=== PATIENT | female | born 1995 | race Caucasian/White ===

== ENCOUNTER 2018-05-25 18:01 | Inpatient (IN) ==
[2018-05-25] MEDS ORDERED: BUTORPHANOL TARTRATE 2 MG/1 ML VIAL IVP PRN (19:02)
[2018-05-25] MEDS ORDERED: Metoclopramide Inj 10 MG/2 ML VIAL IV PRN (19:02)
[2018-05-25] MEDS ORDERED: Phenylephrine Inj 50 MCG in Sodium Chloride 0.9% vial 0.5 ML IVP PRN (19:02)
[2018-05-25] MEDS ORDERED: LIDOCAINE HCL 2 % 10 ML JELLY URO-JECT TOPICAL PRN (19:02)
[2018-05-25] MEDS ORDERED: MISOPROSTOL 200 MCG TABLET RECTAL PRN (19:02)
[2018-05-25] MEDS ORDERED: LIDOCAINE W/ SODIUM BICARB 0.5 ML SYR SUBD PRN (19:02)
[2018-05-25] MEDS ORDERED: diphenhydrAMINE 50 MG/1 ML VIAL IVP PRN (19:02)
[2018-05-25] MEDS ORDERED: ONDANSETRON 4 MG/2 ML VIAL IVP PRN (19:02)
[2018-05-25] MEDS ORDERED: Carboprost Inj 250 MCG/ML AMP IM PRN (19:02)
[2018-05-25] MEDS ORDERED: FAMOTIDINE 20 MG/2 ML VIAL IVP PRN ×2 (19:02)
[2018-05-25] MEDS ORDERED: CALCIUM CARBONATE 500 MG (TUMS) CHEWABLE TABLET PO PRN (19:02)
[2018-05-25] MEDS ORDERED: Lidocaine 1% 10 MG/ML - 20 ML VIAL SUBCUT PRN (19:02)
[2018-05-25] MEDS ORDERED: Naloxone Inj 0.01 MG in Sodium Chloride 0.9% vial 1 ML IVP PRN (19:02)
[2018-05-25] MEDS ORDERED: CITRIC ACID/SODIUM CITRATE 30 ML CUP PO PRN (19:02)
[2018-05-25] MEDS ORDERED: Misoprostol Tab 100 MCG TAB VAGINAL PRN (19:02)
[2018-05-25] MEDS ORDERED: CefOXitin Inj 2 GM in Sodium Chloride 0.9% 100 ML IV PRN (19:02)
[2018-05-25] MEDS ORDERED: TERBUTALINE SULFATE 1 MG/1 ML SDV SUBCUT PRN (19:02)
[2018-05-25] MEDS ORDERED: Nalbuphine Inj 20 MG/ML Ampule IVP PRN (19:02)
[2018-05-25] MEDS ORDERED: ePHEDrine Inj 50 MG/ML AMP IVP PRN (19:02)
[2018-05-25] MEDS ORDERED: fentaNYL Inj 100 MCG/2 ML VIAL IV PRN (19:02)
[2018-05-25] MEDS ORDERED: METHYLERGONOVINE MALEATE 0.2 MG/1 ML VIAL IM PRN (19:02)
[2018-05-25] MEDS ORDERED: Zolpidem Tab 5 MG TAB PO PRN (19:02)
[2018-05-25] MEDS ORDERED: OXYTOCIN 10 UNIT/1 ML IM PRN (19:02)
[2018-05-25] MEDS ORDERED: NALOXONE 0.4 MG/1 ML VIAL IVP PRN (19:02)
[2018-05-25] MEDS ORDERED: Oxytocin 20 Units + LR 20 UNIT/1,000 ML BAG IV SCH ×2 (19:15)
[2018-05-25] MEDS: Lactated Ringers-OB Dept 1,000 ML PRIMARY IV SCH ×2 (19:49→23:18)
[2018-05-25 20:09] LABS: Hemoglobin [HGB] 12.9 g/dL (12.0-16.0); MEAN CORPUSCULAR HEMOGLOBIN 32.7 PG (27-31); MEAN CORPUSCULAR HGB CONC 34.9 g/dL (33-37); MEAN CORPUSCULAR VOLUME 93.7 FL (81-99); MEAN PLATELET VOLUME 10.6 FL (7.4-12.2); RED BLOOD COUNT 3.95 10^6/uL (4.20-5.40)
[2018-05-25] MEDS ORDERED: fentaNYL Inj 100 MCG/2 ML VIAL ONE (23:27)
[2018-05-25] MEDS ORDERED: NALOXONE 0.4 MG/1 ML VIAL ONE (23:43)
[2018-05-25] MEDS ORDERED: Lactated Ringers 1,000 ML PRIMARY IV ONE (23:45)
[2018-05-26] MEDS ORDERED: OXYTOCIN 10 UNIT/1 ML ONE ×2 (00:03→00:26)
[2018-05-26] MEDS ORDERED: DEXTROSE 31 GM GEL BUCCAL PRN (00:09)
[2018-05-26] MEDS ORDERED: ERYTHROMYCIN BASE 1 GM EYE OINT EACH EYE ONE (00:09)
[2018-05-26] MEDS ORDERED: HEPATITIS B VIRUS VACCINE-PF 5 MCG/0.5 ML INFANT IM ONE (00:09)
[2018-05-26] MEDS ORDERED: PHYTONADIONE 1 MG/0.5 ML NEONATAL CONCENTRATION IM ONE (00:09)
[2018-05-26] MEDS ORDERED: ONDANSETRON 4 MG/2 ML VIAL ONE (00:11)
[2018-05-26] MEDS ORDERED: MIDAZOLAM 5 MG/1 ML ONE (00:14)
[2018-05-26] MEDS ORDERED: ePHEDrine Inj 50 MG/ML AMP ONE (00:24)
[2018-05-26] MEDS ORDERED: Lactated Ringers 1,000 ML PRIMARY IV ONE (00:26)
--- NOTE | 2018-05-26 00:52 | CRNA.PROGR ---
Anesthesia Recovery Phase I - Post Anesthesia Evaluation Patient's Condition on Arrival in Phase I: Stable Pain Level: 1
--- NOTE | 2018-05-26 00:52 | CRNA.PROGR ---
Anesthesia Time - Procedure/Recovery Time Start Date: 05/25/18 End Date: 05/26/18 Anesthesia : Time In: 23:49 Anesthesia : Time Out: 00:53 Anesthesia : Total Time: 64 - Total Anesthesia Time Total Anesthesia Time (minutes): 64 - Other Weight: 64.524 kg Height: 5 ft 4 in Body Mass Index (BMI): 24.4 Anesthesia Type: Spinal Block Obstetrics: C/S anesthesia only
[2018-05-26] MEDS ORDERED: Prochlorperazine Edisylate Inj 10mg/2ml vial IVP PRN (00:54)
[2018-05-26] MEDS ORDERED: KETOROLAC 15 MG/1 ML VIAL IVP PRN (00:54)
[2018-05-26] MEDS ORDERED: LIDOCAINE W/ SODIUM BICARB 0.5 ML SYR SUBD PRN (00:54)
--- NOTE | 2018-05-26 00:54 | CRNA.PROCE ---
Central Neuraxis Block Placemt - - Safety Measures: Time Out Taken - - Type of Block: Subarachnoid Reason for Block: Surgical Moniters Used During Block: EKG, SPO2, NIBP Skin Prep Used: ChloroPrep Skin Infiltration - Enter Amount Used in Comment Field: 1% Xylocaine (mL): Yes (skin wheal) Local Anesthetic - Enter Amount Used in Comment Field: 0.75 % Bupivacaine with Dextrose (ml): Yes (2ml) Additive Used - Enter Amount Used in Comment Field: Fentanyl (mcg): Yes (15mcg) Bioclusive Dressing Applied: No Anesthesia Time - Other Weight: 64.524 kg Height: 5 ft 4 in Body Mass Index (BMI): 24.4
[2018-05-26] MEDS ORDERED: Lactated Ringers 1,000 ML PRIMARY IV SCH (01:00)
[2018-05-26] MEDS ORDERED: KETOROLAC 15 MG/1 ML VIAL ONE (01:05)
--- NOTE | 2018-05-26 01:15 | OB.OP.NOTE ---
Operative Report - - Surgeon: Chang Hoyos MD Last Cleaner: Marc Garcia MD Anesthesia Type: Regional Anesthesia Provider: Rashawn Montoya CRNA Surgery Date: 05/26/18 Preoperative Diagnosis: intolerance to labor; IUGR, term gestation Postoperative Diagnosis: same, delivered Procedure: Primary section Complications: none Estimated Blood Loss (mL): 600 Urine Output (mL): 350 Fluids: 2000 cc LR; 30 mU of pitocin Indications: Pt is a 22 yo at 39 1/7 weeks by early /s who has been followed for the past few weeks for intrauterine growth restriction. Her NST have been reactive, her cord dopplers normal and her GI have been normal as well. She presented tonight for cervical ripening secondary to the IUGR. She was not capri upon admission. She received 1 dose of cytotec at approximately 2030. At approximately 2230, I was called by the nurse regarding subtle late decelerations with each contraction. Intrauterine resuscitative efforts were initiated. The decision to give terbutaline to try and stop her contractions was made. After administration of the terbutaline, the baby had a heart deceleration down to the 70s. I was called by the nursing staff at that point. The OR crew was called in. The pt was consented for a primary section for intolerance to labor. Findings: Female infant, cephalic, acynclitic OP presentation. Clear amniotic fluid. The placenta did feel fairly calcified upon removal from the uterus. Description of Procedure: The patient was taken to the operating room where spinal anesthesia was found to be adequate. She was then prepared and draped in the normal sterile fashion in the dorsal supine position with a leftward tilt. A Pfannenstiel skin incision was then made with the scalpel and carried through to the underlying layer of fascia with the Bovie. The fascia was incised in the midline and the incision extended laterally with the Bovie. The superior aspect of the fascial incision was then grasped with the Milana clamps, elevated, and the underlying rectus muscles dissected off bluntly. Attention was then turned to the inferior aspect of this incision which, in a similar fashion, was grasped with the Milana clamps and the rectus muscles dissected off both bluntly and with the Bovie. The rectus muscles were then in the midline, and the peritoneum identified and entered digitally. The peritoneal incision was then extended superiorly and inferiorly with good visualization of the bladder. The Ayaz retractor was then inserted and the vesicouterine peritoneum was identified. The lower uterine segment was incised in a transverse fashion with the scalpel. The uterine incision was then extended laterally in a blunt fashion. The infant's head was delivered atraumatically. The nose and mouth were suctioned with the bulb suction and the cord clamped and cut after 30 seconds for delayed cord clamping. The was handed off to the awaiting nurse. Cord gases and cord blood were sent for analysis. The placenta was then removed manually; the uterus exteriorized, and cleared of all clots and debris. The uterine incision was repaired with 0 Vicryl in a running, locked fashion. A second layer of the same suture was used to obtain excellent hemostasis. The peritoneal cavity was then copiously irrigated with warm saline. The uterus was returned to the abdomen. The paracolic gutters were copiously irrigated with warm saline and a second look at the uterine incision continued to reveal excellent hemostasis. The peritoneum was closed with 3-0 Vicryl. The fascia reapproximated with 0 Vicryl in a running fashion. The subcutaneous space was irrigated copiously with warm saline and then closed first with 3-0 Vicryl and then more superficially with Insorb absorbable sutures. The skin was reapproximated with Steri-Strips and a Silverlon dressing applied. Fundal massage was completed with no clots in vaginal vault. The patient tolerated the procedure well. Sponge, lap, and needle counts were correct x2. Mefoxin was given preoperatively less than one hour prior to incision time. The patient was taken to the recovery room in stable condition.
[2018-05-26] MEDS ORDERED: FAMOTIDINE 20 MG/2 ML VIAL IVP PRN (02:47)
[2018-05-26] MEDS ORDERED: HYDROmorphone 2 MG/1 ML IV PRN (02:47)
[2018-05-26] MEDS ORDERED: D5-LR 1,000 ML PRIMARY IV SCH (02:47)
[2018-05-26] MEDS ORDERED: METHYLERGONOVINE MALEATE 0.2 MG/1 ML VIAL IM ONE (02:47)
[2018-05-26] MEDS ORDERED: Naloxone Inj 0.01 MG, Sodium Chloride 0.9% vial 1 ML IVP PRN ×2 (02:47)
[2018-05-26] MEDS ORDERED: Nalbuphine Inj 20 MG/ML Ampule IVP PRN (02:47)
[2018-05-26] MEDS ORDERED: diphenhydrAMINE 50 MG/1 ML VIAL IV PRN (02:47)
[2018-05-26] MEDS ORDERED: ONDANSETRON 4 MG/2 ML VIAL IVP PRN (02:47)
[2018-05-26] MEDS ORDERED: diphenhydrAMINE 25 MG CAPSULE PO PRN (02:47)
[2018-05-26] MEDS ORDERED: KETOROLAC 15 MG/1 ML VIAL IVP SCH (02:47)
[2018-05-26] MEDS ORDERED: LANOLIN HPA 40 GM TUBE TOPICAL PRN (02:47)
[2018-05-26] MEDS ORDERED: CALCIUM CARBONATE 500 MG (TUMS) CHEWABLE TABLET PO PRN (02:47)
[2018-05-26] MEDS ORDERED: Oxytocin 20 Units + LR 20 UNIT/1,000 ML BAG IV SCH (02:47)
[2018-05-26] MEDS ORDERED: DIPH,PERTUSS,TET(ADACEL) VAC/PF 0.5 ML (Tdap) IM ONE (02:47)
[2018-05-26] MEDS ORDERED: BUTORPHANOL TARTRATE 2 MG/1 ML VIAL IVP PRN (02:47)
[2018-05-26] MEDS: oxyCODONE-ACETAMINOPHEN 5-325 TAB PO PRN ×6 (03:07→23:09)
[2018-05-26] MEDS: KETOROLAC 15 MG/1 ML VIAL IVP SCH ×3 (07:08→19:39)
--- NOTE | 2018-05-26 12:24 | CRNA.PROGR ---
Anesthesia Note - Progress Notes Anesthesia Progress Note: Post OP Anesthesia Note Pt is sitting up in bed, she states that the SAB resolved as expected. She states that her pain is well under control. She is tolerating a regular diet and has been up ambulating. current VS are stable. Vital Signs - Last Taken Temperature 97.9 F 05/26/18 07:49 Pulse Rate 64 05/26/18 07:49 Respiratory Rate 18 05/26/18 07:49 Blood Pressure 123/81 05/26/18 07:49 Pulse Ox 96 05/26/18 07:49
[2018-05-26] MEDS ORDERED: SIMETHICONE 80 MG TABLET PO PRN (15:46)
--- NOTE | 2018-05-26 22:38 | OB.PROGRES ---
Subjective Post Day: 0 Pain Management: PO Salazar Catheter: Yes Flatus: Yes Lochia Color: Rubra/Red Small 10-25 ml Diet: Regular Feeding Method: Exculsively Ambulating: Yes Concerns / Additional Information: Currently has a mild VELASCO behind her eyes, but thinks that it is from lack of sleep. Questions answered about the events leading up her her last noc. Has been up a couple of times. Objective - General General Appearance: POSITIVE: No Acute Distress, Cooperative - Cardiovacular Cardiovascular Exam: POSITIVE: RRR, No Murmur Edema: +1 Pedal Edema Extremities: Negative Guillermo's - Bilaterally - Respiratory Respiratory Exam: POSITIVE: Clear to Auscultation - Bilaterally, Breathing Non Labored - Abdomen Bowel Sounds: Present Abdominal Wound Assessment: Silverlone Dressing - Fundus/Lochia/Perineum Uterus Consistency: Firm Uterus Position: POSITIVE: Below Umbilicus Assesstment / Plan (1) Status post primary low transverse section Current Visit: Yes Status: Acute (2) intolerance to labor, delivered, current hospitalization Current Visit: Yes Status: Acute (3) IUGR (intrauterine growth retardation), delivered, current hospitalization Current Visit: Yes Status: Acute Assessment / Plan: -routine post-operative cares. -breast feeding going well. -rubella non-immune--needs MMR vaccine prior to d/c. -rh positive blood type. -d/c home in 1-2 days.
[2018-05-27] MEDS ORDERED: IBUPROFEN 800 MG TABLET PO SCH (01:00)
[2018-05-27] MEDS: KETOROLAC 15 MG/1 ML VIAL IVP SCH (01:30)
[2018-05-27] MEDS: oxyCODONE-ACETAMINOPHEN 5-325 TAB PO PRN ×6 (03:07→22:50)
[2018-05-27 06:44] LABS: Hematocrit [HCT] 30.3 % (37.0-47.0); Hemoglobin [HGB] 10.1 g/dL (12.0-16.0); MEAN CORPUSCULAR HEMOGLOBIN 32.5 PG (27-31); MEAN CORPUSCULAR HGB CONC 33.3 g/dL (33-37); MEAN CORPUSCULAR VOLUME 97.4 FL (81-99); MEAN PLATELET VOLUME 9.8 FL (7.4-12.2); RED BLOOD COUNT 3.11 10^6/uL (4.20-5.40)
[2018-05-27] MEDS: IBUPROFEN 800 MG TABLET PO SCH ×3 (06:48→22:50)
[2018-05-27] MEDS: Senna/Docusate Tab 1 TAB TAB PO SCH ×2 (08:51→21:06)
[2018-05-27] MEDS: Prenatal Multivitamin Tab 1 TAB TAB PO SCH (08:51)
[2018-05-27] MEDS ORDERED: MMR VACCINE 12500 UNIT/0.5 ML SUBCUT ONE (09:00)
--- NOTE | 2018-05-27 21:33 | OB.PROGRES ---
Subjective Post Day: 1 Pain Management: PO Kern Catheter: Yes Flatus: Yes Lochia Color: Rubra/Red Scant < 10 ml Diet: Regular Feeding Method: Exculsively Ambulating: Yes Concerns / Additional Information: Has been up and around some. Plans on showering and getting kern out this morning. Breast feeding going well. Tolerating regular diet. Just taking 1 percocet now, which hasn't made her as drowsy but is still controlling her pain well. Objective - General General Appearance: POSITIVE: No Acute Distress, Cooperative - Cardiovacular Cardiovascular Exam: POSITIVE: RRR, No Murmur Edema: +1 Pedal Edema Extremities: Negative Guillermo's - Bilaterally - Respiratory Respiratory Exam: POSITIVE: Clear to Auscultation - Bilaterally, Breathing Non Labored - Abdomen Bowel Sounds: Present Abdominal Wound Assessment: Silverlone Dressing Assesstment / Plan (1) Status post primary low transverse section Current Visit: Yes Status: Acute (2) intolerance to labor, delivered, current hospitalization Current Visit: Yes Status: Acute (3) IUGR (intrauterine growth retardation), delivered, current hospitalization Current Visit: Yes Status: Acute Assessment / Plan: -routine cares. -rubella nonimmune--received vaccination this hospital stay. -breast feeding well. -rh positive. -d/c home in 1-2 days.
[2018-05-28] MEDS: oxyCODONE-ACETAMINOPHEN 5-325 TAB PO PRN ×2 (03:00→06:51)
[2018-05-28 03:07] VITALS: TEMP 98; O2SAT 96
[2018-05-28] MEDS: IBUPROFEN 800 MG TABLET PO SCH (06:51)
[2018-05-28 06:57] VITALS: BP 115/83; RESP 16
[2018-05-28] MEDS: Prenatal Multivitamin Tab 1 TAB TAB PO SCH (08:24)
[2018-05-28] MEDS: Senna/Docusate Tab 1 TAB TAB PO SCH (08:24)
[2018-05-28] MEDS ORDERED: FERROUS GLUCONATE 324 MG TABLET PO SCH (09:00)
--- NOTE | 2018-05-28 10:16 | DCSUMMARY ---
Exam - Vitals Vital Signs: Vital Signs Temperature 98.0 F Temperature Source Oral Pulse Rate [Apical] 74 Pulse Rate [Pulse Oximeter] 85 Pulse Rate 76 Respiratory Rate 16 Blood Pressure [Right Arm] 115/83 Blood Pressure 122/72 Pulse Ox 96 Oxygen Flow Rate roomair Oxygen Delivery Method Room Air Height 5 ft 4 in Weight 142 lb 4 oz Patient Problems - Patient Problem List (1) Status post primary low transverse section Current Visit: Yes Status: Acute Code(s): Z98.891 - History of uterine scar from previous surgery Category: Surgical (2) intolerance to labor, delivered, current hospitalization Current Visit: Yes Status: Acute Code(s): O77.9 - Labor and delivery complicated by stress, unspecified Category: Medical (3) IUGR (intrauterine growth retardation), delivered, current hospitalization Current Visit: Yes Status: Acute Code(s): O36.5990 - Maternal care for other known or suspected poor growth, unspecified trimester, not applicable or unspecified Category: Medical
== END 2018-05-28 11:55 | disposition home or self-care (01) | DRG 788 ==
LOC: OBIP 18:01 → MED/SURG 05-26 01:27 → OBIP 05-26 06:08
PROVIDERS: ADMIT Family Medicine; ATTEND Family Medicine